=== PATIENT | male | born 1995 | race Hispanic/Latino ===

== ENCOUNTER 2022-01-04 21:57 | Emergency (ER) | payer OTHER ==
[2022-01-04] MEDS ORDERED: Lidocaine 1% 20 ML MDV ONE (22:07)
[2022-01-05] MEDS ORDERED: Bacitracin 1 PK ONE (00:22)
[2022-01-05] MEDS ORDERED: Cephalexin 250 MG CAP ONE (00:22)
== END 2022-01-05 00:59 | disposition home or self-care (01) ==
LOC: NAV ERS 21:57 → EEVIPCON 21:57 → NAV ERS 01-05 00:59
DX: S02.2XXA Fracture of nasal bones, initial encounter for closed fracture (principal); I10 Essential (primary) hypertension; J45.909 Unspecified asthma, uncomplicated; Z79.899 Other long term (current) drug therapy; W01.0XXA Fall on same level from slipping, tripping and stumbling without subsequent striking against object, initial encounter
CPT/HCPCS: 12013; 70450; 70486